=== PATIENT | male | born 1955 | race Caucasian/White ===

== ENCOUNTER 2023-11-19 11:47 | Outpatient (CLI) | payer MEDICARE ==
[2023-11-19 13:55] LABS: INR-International Normal Ratio 1.1; Prothrombin Time 11.6 sec (9.5-12.1)
[2023-11-19 13:59] LABS: Anion Gap 14 mmol/L (10-20); BUN (Urea Nitrogen) 8 mg/dL (8.4-25.7); Calc. Creatinine Clearance 0 mL/min (70-130); Carbon Dioxide 30 mmol/L (23-31); Chloride 102 mmol/L (98-107); Estimated GFR 96; Glucose 121 mg/dL (80-115); Sodium 142 mmol/L (136-145)
[2023-11-19 14:04] LABS: #Basophils 0.1 10x3/uL (0.0-0.2); #Eosinphils 0.4 10x3/uL (0.0-0.5); #Monocytes 0.7 10x3/uL (0.0-1.1); #Neutrophils 4.5 10x3/uL (1.5-8.4); %Basophils 0.8 % (0.0-2.0); %Lymphocytes 20.4 % (18.0-47.0); %Monocytes 9.1 % (0.0-10.0); %Neutrophils 63.3 % (40.0-75.0); Hematocrit 45.4 % (38.8-50.0); Hemoglobin 15.8 g/dL (13.5-17.5); Mean Corpuscular HGB CONC 34.8 g/dL (32.0-36.0); Mean Corpuscular Hemoglobin 32.2 pg (27.0-33.0); Mean Corpuscular Volume 92.7 fl (81.2-95.1); Mean Platelet Volume 9.2 fl (7.4-10.4); Platelet Count 331 10x3/uL (150-450); RBC Distribution Width 13.3 % (11.5-14.5); White Blood Cell (WBC) Count 7.2 10x3/uL (3.5-10.5)
== END 2023-11-19 11:48 | disposition home or self-care (01) ==
LOC: LABBT 11:47
PROVIDERS: ATTEND Orthopaedic Surgery
DX: Z01.818 Encounter for other preprocedural examination (principal); M17.11 Unilateral primary osteoarthritis, right knee
CPT/HCPCS: 80048; 85025; 85610; 87081; 93005; 93010

== ENCOUNTER 2023-11-25 05:31 | Observation (INO) | payer MEDICARE, OTHER ==
[2023-11-19 12:33] VITALS: BMI 37.3
[2023-11-25] MEDS ORDERED: EPINEPHrine 1 MG/ML VIAL ONE (06:23)
[2023-11-25] MEDS ORDERED: Bupivacaine 0.25% HCL 30 ML VIAL ONE (06:24)
[2023-11-25] MEDS ORDERED: Vancomycin (BATCH) 1.5 GM/300 ML BAG ONE (06:26)
[2023-11-25] MEDS ORDERED: Tranexamic Acid 1,000 MG/10 ML VIAL ONE (06:26)
[2023-11-25] MEDS ORDERED: Sodium Chloride 0.9% 100 ML ONE ×2 (06:26→06:57)
[2023-11-25] MEDS ORDERED: fentaNYL 50 mcg/mL 1 mL Vial ONE ×2 (06:41→10:51)
[2023-11-25] MEDS ORDERED: Midazolam HCl 2 mg/2 ml Vial ONE (06:41)
[2023-11-25] MEDS ORDERED: Lidocaine 1% (PF) 30 ML VIAL ONE (06:42)
[2023-11-25] MEDS ORDERED: CEFAZOLIN 2 GM VIAL ONE (06:57)
[2023-11-25] MEDS ORDERED: fentaNYL 50 mcg/mL 1 mL Vial SLOW IVP PRN (07:09)
[2023-11-25] MEDS ORDERED: PROPOFOL 20 ML ONE (07:09)
[2023-11-25] MEDS ORDERED: Fentanyl 250 MCG/5 ML VIAL ONE (07:09)
[2023-11-25] MEDS ORDERED: Ondansetron PF 4 MG/2 ML Vial IVP PRN ×2 (07:15→09:40)
[2023-11-25] MEDS ORDERED: traMADol HCl 50 MG TAB PO PRN ×2 (07:15)
[2023-11-25] MEDS ORDERED: HYDROcodone/Acetaminophen 10/325 mg Tablet PO PRN ×2 (07:15)
[2023-11-25] MEDS ORDERED: Zolpidem Tartrate 5 MG TAB PO PRN ×2 (07:15→09:40)
[2023-11-25] MEDS ORDERED: Ropivacaine 0.2% 550 ML 550 ML NERVE BLCK SCH (07:15)
[2023-11-25] MEDS ORDERED: Promethazine HCl 25 MG/ML VIAL IM PRN ×2 (07:15→09:40)
[2023-11-25] MEDS ORDERED: Bupivacaine PF 0.5% 30 ML VIAL ONE (07:48)
[2023-11-25] MEDS ORDERED: Dexamethasone 20 MG/5 ML VIAL ONE (08:23)
[2023-11-25] MEDS ORDERED: Ketorolac Tromethamine 30 MG (1 mL) VIAL ONE (08:23)
[2023-11-25] MEDS ORDERED: Ipratropium/Albuterol 3 ML NEB ONE (09:25)
[2023-11-25] MEDS ORDERED: Acetaminophen 325 MG TAB PO PRN (09:40)
[2023-11-25] MEDS ORDERED: diphenhydrAMINE 25 MG CAP PO PRN (09:40)
[2023-11-25] MEDS ORDERED: fentaNYL PF 100 MCG/2 ML SYRINGE ONE (10:01)
[2023-11-25] MEDS: Aspirin 81 mg Enteric Coated Tablet PO SCH ×2 (13:27→20:41)
[2023-11-25] MEDS: Ketorolac Tromethamine 30 MG (1 mL) VIAL IVP SCH (13:28)
[2023-11-25] MEDS: Dextrose 5 %-0.45 % NaCl 1,000 ML IV SCH (13:28)
[2023-11-25] MEDS ORDERED: Ipratropium/Albuterol 3 ML NEB NEB PRN (13:31)
[2023-11-25] MEDS: CEFAZOLIN 2 GM in Sodium Chloride 0.9% 100 ML IVPB SCH (16:07)
[2023-11-25] MEDS: Vancomycin (BATCH) 1.5 GM in Premix 1 BAG IVPB SCH (20:41)
[2023-11-25] MEDS: Ipratropium Bromide 0.03% Nasal Inhaler 30 ml Bottle EA NARE SCH (21:00)
[2023-11-26 04:50] LABS: Hematocrit 36.5 % (42.0-52.0); Hemoglobin 11.9 g/dL (14.0-18.0); Mean Corpuscular HGB CONC 32.6 g/dL (32.0-36.0); Mean Corpuscular Hemoglobin 31.1 pg (27.0-31.0); Mean Corpuscular Volume 95.3 fl (78.0-98.0); Mean Platelet Volume 9.2 fL (7.4-10.4); Platelet Count 255 10x3/uL (130-400); RBC Distribution Width 13.7 % (11.5-14.5); Red Blood Cell (RBC) Count 3.83 mill/uL (4.70-6.10); White Blood Cell (WBC) Count 12.7 10x3/uL (4.8-10.8)
[2023-11-26] MEDS: Fluticasone Propionate Nasal Spray 16 gm Bottle NASAL SCH (08:33)
[2023-11-26] MEDS: Montelukast Sodium 10 mg Tablet PO SCH (08:34)
[2023-11-26] MEDS: Furosemide 40 MG TAB PO SCH (08:34)
[2023-11-26] MEDS: Potassium Chloride 20 MEQ TAB PO SCH (08:34)
[2023-11-26] MEDS: NIFEdipine XL 90 MG ER.TAB PO SCH (08:35)
[2023-11-26] MEDS: Ferrous Gluconate 324 MG TAB PO SCH (08:35)
[2023-11-26] MEDS: Multivit, Therapeutic 1 TAB PO SCH (08:35)
[2023-11-26] MEDS: Allopurinol 300 MG TAB PO SCH (08:35)
[2023-11-26] MEDS: Senokot S 8.6-50 MG TAB PO SCH (08:36)
[2023-11-26] MEDS: Cholecalciferol 1,000 UNITS (25 MCG) TAB PO SCH (08:37)
[2023-11-26] MEDS ORDERED: Tadalafil 5 MG Tablet PO SCH (09:00)
[2023-11-26] MEDS: Cephalexin 250 MG CAP PO SCH (11:26)
[2023-11-26 11:35] VITALS: BP 145/79; TEMP 97.8
== END 2023-11-26 12:57 | disposition home or self-care (01) ==
LOC: SDC 05:31 → SURG B 09:40
PROVIDERS: ADMIT Orthopaedic Surgery; ATTEND Orthopaedic Surgery
PROC: 0SRC0JZ Replacement of Right Knee Joint with Synthetic Substitute, Open Approach (ICD-10-PCS; principal; 2023-11-25)
DX: M17.11 Unilateral primary osteoarthritis, right knee (principal); J44.89 Other specified chronic obstructive pulmonary disease; I10 Essential (primary) hypertension; M10.9 Gout, unspecified; N40.0 Benign prostatic hyperplasia without lower urinary tract symptoms; Z86.16 Personal history of COVID-19; Z96.652 Presence of left artificial knee joint; Z96.611 Presence of right artificial shoulder joint; Z96.612 Presence of left artificial shoulder joint; Z98.890 Other specified postprocedural states; Z88.8 Allergy status to other drugs, medicaments and biological substances; Z79.899 Other long term (current) drug therapy; Z87.891 Personal history of nicotine dependence
CPT/HCPCS: 27447; 73560; 85027; 96365; 96366; 96367; 96375; 96376 ×2; 97110; 97116 ×2; 97530; A4306; C1713; C1776; G0378 ×2; J0171; J3010; J3370; 36415; J0665; J1100; J1885; J2001; J2250; J2704; J2795; J3490; J7620

== ENCOUNTER 2023-12-04 15:21 | Outpatient (CLI) | payer MEDICARE | END 2023-12-04 15:22 | disposition home or self-care (01) | LOC: ULT 15:21 | PROVIDERS: ATTEND Orthopaedic Surgery | DX: M79.604 Pain in right leg (principal) ==

== ENCOUNTER 2024-04-01 10:00 | Outpatient (CLI) | payer MEDICARE ==
[2024-04-01 11:13] LABS: Hematocrit 44.6 % (38.8-50.0); Hemoglobin 15.2 g/dL (13.5-17.5); Mean Corpuscular HGB CONC 34.1 g/dL (32.0-36.0); Mean Corpuscular Hemoglobin 31.3 pg (27.0-33.0); Platelet Count 325 10x3/uL (150-450); RBC Distribution Width 13.9 % (11.5-14.5); Red Blood Cell (RBC) Count 4.85 10x6/uL (4.32-5.72); White Blood Cell (WBC) Count 8.9 10x3/uL (3.5-10.5)
[2024-04-01 11:28] LABS: INR-International Normal Ratio 1.1; PTT 29.7 sec (22.0-33.0); Prothrombin Time 11.9 sec (9.5-12.1)
[2024-04-01 11:41] LABS: Anion Gap 14 mmol/L (10-20); BUN (Urea Nitrogen) 10 mg/dL (8.4-25.7); Calc. Creatinine Clearance 0 mL/min (70-130); Calcium 9.4 mg/dL (7.8-10.44); Carbon Dioxide 30 mmol/L (23-31); Chloride 101 mmol/L (98-107); Estimated GFR 96; Glucose 122 mg/dL (80-115); Sodium 141 mmol/L (136-145)
[2024-04-01 12:08] LABS: Bilirubin Neg (Negative); Blood, Urine Negative (Negative); Clarity Clear (Clear); Glucose, Urine (Dipstick) Normal (Negative); Ketone, Urine Negative (Negative); Leukocyte Negative (Negative); Nitrite Negative (Negative); Protein, Urine (Dipstick) 15 mg/dl (Neg-Trace); Urobilinogen Normal mg/dL (Less than 2)
[2024-04-01 12:48] LABS: Bacteria/HPF None Seen HPF (None Seen); RBC/HPF None Seen HPF (0-3); Squamous Epithelial None Seen HPF (0-3); WBC/HPF None Seen HPF (0-3)
== END 2024-04-01 10:01 | disposition home or self-care (01) ==
LOC: LABBT 10:00
PROVIDERS: ATTEND Urology
DX: Z01.818 Encounter for other preprocedural examination (principal); N32.81 Overactive bladder; R33.9 Retention of urine, unspecified
CPT/HCPCS: 71046; 80048; 81001; 85027; 85610; 85730; 87086; 93005; 93010

== ENCOUNTER 2024-04-09 09:07 | Day surgery (SDC) | payer MEDICARE ==
[2024-04-01 10:22] VITALS: BMI 37.3
[2024-04-09] MEDS ORDERED: Famotidine/PF 20 mg/2ml Vial ONE (11:53)
[2024-04-09] MEDS ORDERED: Midazolam HCl 2 mg/2 ml Vial ONE ×2 (11:53→12:24)
[2024-04-09] MEDS ORDERED: Sodium Chloride 0.9% 100 ML ONE (11:56)
[2024-04-09] MEDS ORDERED: CEFAZOLIN 2 GM VIAL ONE (11:56)
[2024-04-09] MEDS ORDERED: fentaNYL 50 mcg/mL 1 mL Vial ONE ×2 (12:04→12:10)
[2024-04-09] MEDS ORDERED: PROPOFOL 0 ML ONE (12:04)
[2024-04-09] MEDS ORDERED: Lidocaine 2% PF 5 ML VIAL ONE (12:04)
[2024-04-09] MEDS ORDERED: Bupivacaine 0.25% HCL 30 ML VIAL ONE (12:15)
[2024-04-09] MEDS ORDERED: Ondansetron PF 4 MG/2 ML Vial ONE (12:43)
[2024-04-09] MEDS ORDERED: PROPOFOL 20 ML ONE (12:45)
== END 2024-04-09 16:30 | disposition home or self-care (01) ==
LOC: SDC 09:07
PROVIDERS: ATTEND Urology
PROC: 0JH73BZ Insertion of Single Array Stimulator Generator into Back Subcutaneous Tissue and Fascia, Percutaneous Approach (ICD-10-PCS; principal; 2024-04-09)
DX: N32.81 Overactive bladder (principal); R33.9 Retention of urine, unspecified; M10.9 Gout, unspecified; J45.909 Unspecified asthma, uncomplicated; M19.90 Unspecified osteoarthritis, unspecified site; I10 Essential (primary) hypertension; Z96.659 Presence of unspecified artificial knee joint; Z88.8 Allergy status to other drugs, medicaments and biological substances
CPT/HCPCS: 64561; 72220; C1897; J0665; J2250; J2405; J2704; J3010; J3490; S0028; J2001

== ENCOUNTER → 2024-12-13 | Day surgery (SDC) | payer MEDICARE ==
[~2024-12-13] MED LIST: 0.9 % Sodium Chloride 20 ML, Lidocaine 1% PF 5 ML, Iopamidol 5 ML, EPINEPHrine 0.1 MG FS SCH; Sodium Bicarbonate 2.5 MEQ/5 ML SDV ONE
== END ==
LOC: RAD 07:39
PROVIDERS: ATTEND Orthopaedic Surgery
PROC: BP09YZZ Plain Radiography of Left Shoulder using Other Contrast (ICD-10-PCS; principal; 2024-12-13)
DX: S46.012A Strain of muscle(s) and tendon(s) of the rotator cuff of left shoulder, initial encounter (principal); R33.9 Retention of urine, unspecified; Z88.8 Allergy status to other drugs, medicaments and biological substances; X58.XXXA Exposure to other specified factors, initial encounter
CPT/HCPCS: 23350; 73201; 76770; 77002; J0171; Q9967

== ENCOUNTER 2025-06-15 09:19 | Outpatient (CLI) | payer MEDICARE | END 2025-06-15 09:20 | disposition home or self-care (01) | LOC: RAD 09:19 | PROVIDERS: ATTEND Internal Medicine | DX: R06.00 Dyspnea, unspecified (principal); I51.7 Cardiomegaly; J98.11 Atelectasis; J84.10 Pulmonary fibrosis, unspecified; I28.1 Aneurysm of pulmonary artery | CPT/HCPCS: 71046 ==

== ENCOUNTER 2025-07-11 12:24 | Inpatient (IN) | payer MEDICARE ==
[~2025-07-11 12:24] MED LIST changes: -0.9 % Sodium Chloride 20 ML, Lidocaine 1% PF 5 ML, Iopamidol 5 ML, EPINEPHrine 0.1 MG FS SCH; +Iopamidol-370 76% 500 ML MDV (1 ML CHARGE) ONE; -Sodium Bicarbonate 2.5 MEQ/5 ML SDV ONE
[2025-07-11] MEDS ORDERED: Magnesium 2 GM/50 ML BAG (IN WATER) ONE (12:55)
[2025-07-11] MEDS ORDERED: predniSONE 20 MG TAB ONE (12:55)
[2025-07-11 13:03] LABS: #Basophils 0.04 10x3/uL (0.0-0.2); #Eosinophils 0.10 10x3/uL (0.0-0.7); #Monocytes 1.06 10x3/uL (0.11-0.59); #Neutrophils 9.54 10x3/uL (1.40-6.50); %Basophils 0.3 % (0.0-1.0); %Eosinophils 0.8 % (0.0-10.0); %Lymphocytes 9.1 % (21.0-51.0); %Monocytes 8.9 % (0.0-10.0); %Neutrophils 80.5 % (42.0-75.0); Hematocrit 40.8 % (42.0-52.0); Hemoglobin 13.4 g/dL (14.0-18.0); Mean Corpuscular Hemoglobin 30.2 pg (27.0-31.0); Mean Corpuscular Volume 91.9 fL (78.0-98.0); Platelet Count 277 10x3/uL (130-400); Red Blood Cell (RBC) Count 4.44 mill/uL (4.70-6.10); White Blood Cell (WBC) Count 11.87 10x3/uL (4.8-10.8)
[2025-07-11 13:26] LABS: ALT (SGPT) 18 U/L (Less than 45); AST (SGOT) 19 U/L (11-34); Albumin 3.3 g/dL (3.1-4.5); Alkaline Phosphatase 101 U/L (40-110); Anion Gap 14 mmol/L (10-20); BUN (Urea Nitrogen) 10 mg/dL (8.4-25.7); Bilirubin, Total 1.4 mg/dL (0.3-1.2); Calc. Creatinine Clearance 0 mL/min (70-130); Calcium 8.8 mg/dL (7.8-10.44); Carbon Dioxide 26 mmol/L (23-31); Chloride 100 mmol/L (98-107); Globulin 3.4 g/dL (2.4-3.5); Glucose 120 mg/dL (83-110); Potassium 3.4 mmol/L (3.5-5.1); Sodium 137 mmol/L (136-145)
[2025-07-11] MEDS ORDERED: Furosemide 40 MG (4 mL) VIAL ONE (14:18)
[2025-07-11] MEDS ORDERED: cefTRIAXone (ROCEPHIN) 2 GM VIAL ONE (15:36)
[2025-07-11] MEDS ORDERED: Azithromycin 500 MG VIAL ONE (15:36)
[2025-07-11] MEDS ORDERED: Enoxaparin 100 MG (1 mL) SYRINGE ONE (15:37)
[2025-07-11] MEDS ORDERED: Enoxaparin 40 MG (0.4 mL) SYRINGE ONE (15:37)
[2025-07-11] MEDS ORDERED: Ipratropium Bromide 2.5 ml Neb NEB PRN (16:35)
[2025-07-11 16:38] LABS: Bacteria/HPF None Seen HPF (None Seen); CAUTI Indications for Culture Dysuria,urgency,freq; Glucose, Urine (Dipstick) Normal (Negative); Leukocyte Negative Leu/uL (Negative); Protein, Urine (Dipstick) Negative (Neg-Trace); RBC/HPF 0-3 HPF (0-3); Specific Gravity, Urine 1.012 (1.002-1.036); WBC/HPF 0-3 HPF (0-3)
[2025-07-11 16:46] LABS: Urine Culture Reflex No No
[2025-07-11 18:46] VITALS: BMI 40.3
[2025-07-11] MEDS: Ipratropium Bromide 2.5 ml Neb NEB SCH (22:26)
[2025-07-12] MEDS ORDERED: Enoxaparin 100 MG (1 mL) SYRINGE SC SCH (04:00)
[2025-07-12] MEDS: Furosemide 40 MG (4 mL) VIAL SLOW IVP SCH (09:21)
[2025-07-12] MEDS: Allopurinol 300 MG TAB PO SCH (09:21)
[2025-07-12] MEDS: cefTRIAXone\\ROCEPHIN 2 GM in Sodium Chloride 0.9% 100 ML IVPB SCH (15:29)
[2025-07-12] MEDS: Azithromycin 500 MG in Sodium Chloride 0.9% 250 ML 250 ML IVPB SCH (15:30)
[2025-07-12] MEDS: Mometasone 200 MCG/Formoterol 5 MCG 120 PUFF INHALER INH SCH (18:52)
[2025-07-13] MEDS: Mirabegron ER 25 MG ER.TAB PO SCH (09:31)
[2025-07-14] MEDS: Apixaban 5 MG TAB PO SCH (20:34)
[2025-07-15 05:08] LABS: #Basophils Less than 0.03 10x3/uL (0.0-0.2); #Eosinophils Less than 0.03 10x3/uL (0.0-0.7); #Monocytes 0.34 10x3/uL (0.11-0.59); #Neutrophils 5.99 10x3/uL (1.40-6.50); %Basophils 0.0 % (0.0-1.0); %Eosinophils 0.0 % (0.0-10.0); %Lymphocytes 9.7 % (21.0-51.0); %Monocytes 4.8 % (0.0-10.0); %Neutrophils 85.1 % (42.0-75.0); Hematocrit 41.7 % (42.0-52.0); Hemoglobin 13.3 g/dL (14.0-18.0); Mean Corpuscular Hemoglobin 29.7 pg (27.0-31.0); Mean Corpuscular Volume 93.1 fL (78.0-98.0); Platelet Count 350 10x3/uL (130-400); Red Blood Cell (RBC) Count 4.48 mill/uL (4.70-6.10); White Blood Cell (WBC) Count 7.04 10x3/uL (4.8-10.8)
[2025-07-15 05:31] LABS: Anion Gap 12 mmol/L (10-20); BUN (Urea Nitrogen) 14 mg/dL (8.4-25.7); Calc. Creatinine Clearance 176 mL/min (70-130); Calcium 8.5 mg/dL (7.8-10.44); Carbon Dioxide 32 mmol/L (23-31); Chloride 100 mmol/L (98-107); Glucose 131 mg/dL (83-110); Potassium 3.5 mmol/L (3.5-5.1); Sodium 140 mmol/L (136-145)
[2025-07-15 15:07] VITALS: BP 166/79; TEMP 98.3
[2025-07-15] MEDS: cloNIDine 0.1 MG TAB PO SCH (15:08)
[2025-07-15] MEDS: Losartan 25 MG TAB PO SCH (15:08)
[2025-07-16] MEDS ORDERED: Losartan 25 MG TAB PO SCH (09:00)
== END 2025-07-15 18:11 | disposition home or self-care (01) | DRG 193 ==
LOC: ERS 12:24 → ERHOLD 16:13 → 2NO 18:11
PROVIDERS: ADMIT Internal Medicine; ATTEND Internal Medicine
DX: J18.9 Pneumonia, unspecified organism (principal); I50.31 Acute diastolic (congestive) heart failure; J45.901 Unspecified asthma with (acute) exacerbation; I48.91 Unspecified atrial fibrillation; M10.9 Gout, unspecified; M19.90 Unspecified osteoarthritis, unspecified site; N32.81 Overactive bladder; N28.89 Other specified disorders of kidney and ureter; E87.6 Hypokalemia; Z96.653 Presence of artificial knee joint, bilateral; G47.33 Obstructive sleep apnea (adult) (pediatric); Z96.612 Presence of left artificial shoulder joint; E66.01 Morbid (severe) obesity due to excess calories; I11.0 Hypertensive heart disease with heart failure; Z79.899 Other long term (current) drug therapy; Z98.890 Other specified postprocedural states; Z91.148 Patient's other noncompliance with medication regimen for other reason
CPT/HCPCS: 36415; 71045; 71275; 74177; 78452; 80048; 80053; 81001; 83605; 83880; 84484; 85025; 85379; 87040; 87077; 87086; 87149; 87426; 93005; 93017; 93306; 94640; 94664; 94760; 96365; 96367; 96372; 96375; A9502; J0456; J0696; J1650; J1940; J2785; J2919; J3475; J7050; J7512; J7644; Q9967

== ENCOUNTER 2025-08-15 08:45 | Day surgery (SDC) | payer MEDICARE ==
[2025-08-15] MEDS ORDERED: Lidocaine 1% PF 5 ML VIAL ONE (11:18)
[2025-08-15] MEDS ORDERED: PROPOFOL 200 MG/20 ML VIAL ONE (11:18)
== END 2025-08-15 12:45 | disposition home or self-care (01) ==
LOC: SDC 08:45
PROVIDERS: ATTEND Internal Medicine Cardiovascular Disease
PROC: B24BZZ4 Ultrasonography of Heart with Aorta, Transesophageal (ICD-10-PCS; principal; 2025-08-15)
PROC: 5A2204Z Restoration of Cardiac Rhythm, Single (ICD-10-PCS; 2025-08-15)
DX: I48.91 Unspecified atrial fibrillation (principal); I10 Essential (primary) hypertension; E66.01 Morbid (severe) obesity due to excess calories; Z79.899 Other long term (current) drug therapy
CPT/HCPCS: 92960; 93005; 93312; J2704; 93010